=== PATIENT | male | born 1980 ===

== ENCOUNTER 2016-10-24 19:29 | Emergency (ER) | payer OTHER ==
[2016-10-24 20:04] VITALS: BP 120/70
[2016-10-24] MEDS ORDERED: diPHENhydraMINE PO* 50 MG PO ONE (20:16)
--- NOTE | 2016-10-24 20:16 | UC ---
Skin Complaint HPI - HPI Summary HPI Summary: 5 days of itchy red rash, on arms and legs some on abdomen and back, claritin without relief, unsure of exposure - History of Current Complaint Chief Complaint: UCRash Time Seen by Provider: 10/24/16 19:37 Stated Complaint: RASH Hx Obtained From: Patient Onset/Duration: Sudden Onset, Lasting Days - 5, Still Present Timing: Constant Onset Severity: Mild Current Severity: Mild Pain Intensity: 4 Pain Scale Used: 0-10 Numeric Location: Diffuse Character: Pruritus, Hives, Redness Aggravating: Nothing Alleviating: Nothing - Allergy/Home Medications Allergies/Adverse Reactions: Allergies Allergy/AdvReac Type Severity Reaction Status Date / Time No Known Allergies Allergy Verified 10/24/16 20:04 Home Medications: Home Medications Loratadine 10 mg PO 10/24/16 [History] Review of Systems Constitutional: Negative Skin: Rash Eyes: Negative ENT: Negative Respiratory: Negative Cardiovascular: Negative Gastrointestinal: Negative Genitourinary: Negative Motor: Negative Neurovascular: Negative Musculoskeletal: Negative Neurological: Negative Psychological: Negative All Other Systems Reviewed And Are Negative: Yes PMH/Surg Hx/FS Hx/Imm Hx Previously Healthy: Yes - Surgical History Surgical History: Yes Surgery Procedure, Year, and Place: left fractured hand - Family History Known Family History: Positive: None - Social History Occupation: Employed Full-time - post doc. research at [employer] Lives: With Family Alcohol Use: Weekly Substance Use Type: None Smoking Status (MU): Never Smoked Tobacco Physical Exam Triage Information Reviewed: Yes Appearance: Well-Appearing, No Pain Distress, Well-Nourished Vital Signs: Initial Vital Signs Temp 98.4 F 10/24/16 20:00 Pulse 73 10/24/16 20:00 Resp 16 10/24/16 20:00 BP 120/70 10/24/16 20:00 Pulse Ox 100 10/24/16 20:00 Vital Signs Reviewed: Yes Eye Exam: Normal Eyes: Positive: Conjunctiva Clear ENT Exam: Normal ENT: Positive: Normal ENT inspection, Hearing grossly normal, TMs normal. Negative: Nasal congestion, Nasal drainage, Tonsillar swelling, Tonsillar exudate, Trismus, Muffled/hoarse voice Dental Exam: Normal Neck exam: Normal Neck: Positive: Supple, Nontender, No Lymphadenopathy Respiratory Exam: Normal Respiratory: Positive: Chest non-tender, Lungs clear, Normal breath sounds. Negative: No respiratory distress, No accessory muscle use, Respiratory distress Cardiovascular Exam: Normal Cardiovascular: Positive: RRR, No Murmur, Pulses Normal, Brisk Capillary Refill Musculoskeletal Exam: Normal Musculoskeletal: Positive: Strength Intact, ROM Intact, No Edema Neurological Exam: Normal Neurological: Positive: Alert, Muscle Tone Normal Psychological Exam: Normal Skin Exam: Normal Skin: Positive: rashes Course/Dx - Course Course Of Treatment: benadryl, prednisone, claritin, follow with pcp should rash not resolve in next 3-4 days - Differential Diagnoses - Skin Complaint Differential Diagnoses: Anaphylaxis, Contact Dermatitis, Eczema, Impetigo, Local Allergic Reaction - Diagnoses Provider Diagnoses: Allergic Dermititis Discharge - Discharge Plan Condition: Stable Disposition: HOME Prescriptions: diPHENhydraMINE PO* [Benadryl PO 25 MG TAB*] 25 - 50 mg PO TID PRN #30 tab PRN Reason: itch and rash predniSONE TAB* [Deltasone TAB*] 40 mg PO DAILY #8 tab Patient Education Materials: Urticaria (ED) Referrals: [facility] [Provider Group] - 4 Days No Primary Care Phys,NOPCP [Primary Care Provider] -
[2016-10-24] MEDS ORDERED: predniSONE TAB* 20 MG PO ONE (20:17)
== END 2016-10-24 20:33 | disposition home or self-care (01) ==
LOC: UCEAST 19:29
DX: L23.9 Allergic contact dermatitis, unspecified cause (principal)
CPT/HCPCS: 99203; A9270-GY; G0463; J7512